=== PATIENT | female | born 2005 | race Caucasian/White ===

== ENCOUNTER 2024-09-27 20:28 | Emergency (ER) | payer OTHER ==
[~2024-09-27] VITALS: Ht 167.6 cm; Wt 70.8 kg
[~2024-09-27 20:28] MED LIST: Bactrim Ds Tab1 EACH PO
[2024-09-27] MEDS ORDERED: Ibuprofen 400 MG Tab PO ONE (21:40)
== END 2024-09-27 21:55 | disposition home or self-care (01) ==
LOC: ER 20:28
DX: S86.892A Other injury of other muscle(s) and tendon(s) at lower leg level, left leg, initial encounter (principal); S86.891A Other injury of other muscle(s) and tendon(s) at lower leg level, right leg, initial encounter; S76.312A Strain of muscle, fascia and tendon of the posterior muscle group at thigh level, left thigh, initial encounter; Z88.0 Allergy status to penicillin; X58.XXXA Exposure to other specified factors, initial encounter
CPT/HCPCS: 73590; 99283-25; A9270

== ENCOUNTER 2025-09-24 17:13 | Emergency (ER) | payer OTHER ==
[~2025-09-24] VITALS: Ht 167.6 cm; Wt 65.8 kg
[2025-09-24] MEDS ORDERED: RX Prepack 6 Tabs Oxycodone 5mg UD ONE (18:40)
[2025-09-24] MEDS ORDERED: Lithium Carbon150 MG PO (19:01)
== END 2025-09-24 19:04 | disposition home or self-care (01) ==
LOC: ER 17:13
DX: Z01.89 Encounter for other specified special examinations (principal); Z76.0 Encounter for issue of repeat prescription; Z79.899 Other long term (current) drug therapy; Z88.0 Allergy status to penicillin
CPT/HCPCS: 99281